=== PATIENT | male | born 1965 | race Caucasian/White ===

== ENCOUNTER 2017-12-17 09:31 | Emergency (ER) | payer OTHER ==
[~2017-12-17] VITALS: Ht 188 cm; Wt 91.0 kg
[2017-12-17 09:48] VITALS: BP 143/88
[2017-12-17] MEDS ORDERED: BUPIVAcaine/PF 2.5 mg/ml (0.25%) 30ml vial IJ ONE (10:15)
[2017-12-17] MEDS ORDERED: SULF1TAB49 PO (10:18)
[2017-12-17] MEDS ORDERED: BUPIVAcaine/PF 2.5mg/ml (0.25%) 10ml vial IJ ONE (10:20)
[2017-12-17] MEDS ORDERED: ibuprofen tablet 400 MG TABLET PO ONE (10:20)
[2017-12-17] MEDS ORDERED: TETanus/Pertussis (Acell)/Diphther VAC/PF (Tdap-Adult) 0.5ml syringe IM ONE (11:05)
== END 2017-12-17 11:25 | disposition home or self-care (01) ==
LOC: ER 09:32
DX: L02.212 Cutaneous abscess of back [any part, except buttock and flank] (principal); L02.415 Cutaneous abscess of right lower limb; F17.200 Nicotine dependence, unspecified, uncomplicated; Z79.2 Long term (current) use of antibiotics
CPT/HCPCS: 10061; 90471; 90715; 99284; A6255; A6449; J3490